=== PATIENT | male | born 1970 | race Caucasian/White ===

== ENCOUNTER 2020-09-12 10:18 | Observation (INO) | payer OTHER, BC, SELFPAY ==
[2020-09-12] VITALS (16 sets, daily range): BP systolic 107–142; BP diastolic 61–96; PULSE 59–117; RESP 12–24; TEMP 36.3–37.1; O2SAT 95–100; BMI 29.2
--- NOTE | ~2020-09-12 | XR_ITS ---
EXAMINATION: XR surgery orthopedic DATE: 09/12/2020 15:56 INDICATION: ORIF left tibia/fibula fractures. TECHNIQUE: 3 fluoroscopic spot images of the left ankle were obtained during procedure performed by Michaelle Hartley. Radiologist was not present for the imaging or procedure. The amount of fluoroscopy time used during this procedure was 0.1 minutes. COMPARISON: None. FINDINGS: Interval reduction and internal fixation with interfragmentary screw and lateral plate and screw fixa tion of the oblique distal left fibular fracture. There is a subtle double density sign corresponding to the small likely minimally displaced posterior malleolar fracture which remains unfixed. There fe w millimeter of residual distraction of a tiny fracture fragment arising from the tip of the medial m alleolus. The prior widening of the medial clear space is been reduced with a now congruent ankle mor tise. IMPRESSION: 1. Trimalleolar fracture with anatomic alignment of the internal fixation of the distal left fibular fracture. 2. Mild residual displacement of a small posterior malleolar fracture fragment and of a tiny avulsion fracture fragment arising from the tip of the medial malleus both of which remain unfixed. Reviewed, dictated and finalized at location A. [facility] PSYCHIATRIC AIDE IMPRESSION: 1. Trimalleolar fracture with anatomic alignment of the internal fixation of th e distal left fibular fracture. 2. Mild residual displacement of a small posterior malleolar fracture fragment and of a tiny avulsion fracture fragment arising from the tip of the medial mal leus both of which remain unfixed.
--- NOTE | ~2020-09-12 | XR_ITS ---
EXAMINATION: XR ankle LT min 3V EXAM DATE: 09/12/2020 12:03 INDICATION: Splinted. Jumped off truck. Fracture. TECHNIQUE: Left ankle frontal, lateral and oblique projections obtained and reviewed. Comparison is m yenny to prior examination from earlier same date. FINDINGS: There is been some reduction in the posterolateral displacement of the left fibular obliqu e distal metaphyseal fracture extending into the mortise. There is still significant posterior latera l displacement. The mortise relationship does appear to have been reduced, but based on the prior josh dy clearly mortise medial ligaments have also been disrupted with medial malleolar avulsion fracture identified. A cast/splint has been applied. Calcaneal spurs. Recommend orthopedic consult. IMPRESSION: Casted left fibular metaphyseal fracture. Ligamentous mortise disruption. Reviewed, dictated and finalized at location B. GROUND CARETAKER IMPRESSION: Casted left fibular metaphyseal fracture. Ligamentous mortise disr uption.
--- NOTE | ~2020-09-12 | XR_ITS ---
EXAMINATION: XR ankle LT min 3V DATE: 09/12/2020 10:41 INDICATION: Left ankle pain, initial encounter TECHNIQUE: Anteroposterior, lateral, mortise, and additional oblique view of the ankle were obtained. COMPARISON: None. FINDINGS: There is an acute, traumatic, closed, oblique fracture of the distal fibula which extends t o the level of the tibial plafond. There is posterior subluxation at the tibiotalar joint with the di stal fibular fracture fragment approximately 1.2 cm posterior to the fibular shaft. There is also joo roximately 6 mm of lateral subluxation at the tibiotalar joint. A tiny heterotopic ossification is se en projecting medial to the talus. Ankle soft tissue swelling is present. Dorsal and plantar calcanea l enthesophytes are noted. IMPRESSION: 1. Oblique fracture of the distal fibula with lateral and posterior subluxation at the tibiotalar darron nt. 2. Findings consistent with avulsion injury of the medial malleolus. Reviewed, dictated and finalized at location A. CE INVESTIGATOR IMPRESSION: 1. Oblique fracture of the distal fibula with lateral and posterior subluxation at the tibiotalar joint. 2. Findings consistent with avulsion injury of the medial malleolus.
[2020-09-12] MEDS: LORazepam INJ (*CRX) 2 MG/ML VIAL 1 MG IV PUSH (10:45)
[2020-09-12] MEDS: SODIUM CHLORIDE 0.9% IV 1,000 ML 999 ML IV CONT (10:46)
[2020-09-12] MEDS: MORPHINE SULFATE (*CRX) 4 MG/ML INJ IV PUSH ×2 (11:26→11:57)
--- NOTE | 2020-09-12 12:33 | ED.GENADULT ---
HPI - General Adult General Chief complaint: Extremity Injury, Lower Stated complaint: ankle injury Time Seen by Provider: 09/12/20 10:21 Source: patient Mode of arrival: EMS Limitations: no limitations History of Present Illness HPI narrative: Patient is a 49-year-old male who presents to emergency department for evaluation of ankle injury that occurred just prior to arrival patient jumped off the back of a truck injuring the left ankle patient notes aching pain and inability to bear weight patient was given medications in route with some improvement patient denies other injuries or complaints Related Data Allergies Allergy/AdvReac Type Severity Reaction Status Date / Time No Known Allergies Allergy Verified 04/03/20 13:14 Review of Systems Review of Systems: All systems reviewed & are unremarkable except as noted in HPI and below PMFSH Past Medical History Medical History (Updated 09/12/20 @ 12:37 by Carlos Alberto Larsen PA-C) Dyslipidemia Environmental allergies Vertigo 08/2018 Surgical History Surgical History Hx of lumbosacral spine surgery 1997 Family History Family History Father Cerebrovascular accident Other Family history of coronary artery disease Social History Social History Smoking status: Never smoker Tobacco type: cigarettes Second hand tobacco smoke exposure: Yes Smoking end date: 11/07/19 Additional smoking assessment comments: step-father smokes around him Alcohol intake: never Substance use: never Substance use type: marijuana Gender identity (if verbalized by the patient): Male Exam Narrative: Exam Narrative: GENERAL: Well-appearing, well-nourished, and in no acute distress. HEAD: Normocephalic, atraumatic. EYES: PERRLA and EOMI. ENT: Nares clear, no rhinorrhea or epistaxis. Mucous membranes moist. CHEST: Clear to auscultation. No respiratory distress. No wheezes rales or rhonchi HEART: Regular rate and rhythm. No murmur heard. Normal peripheral pulses. EXTREMITIES: Swelling and tenderness of the left ankle joint no tenderness of the remainder of the left lower extremity SKIN: Warm, dry, no rash. NEURO: No focal deficits. Alert and oriented x3. Neurovascularly intact. Capillary refill less than 2 seconds PSYCH: Normal mood and affect. Course Course Emergency Course: Patient will go to operative suite had splinting and reduction done in the emergency department will go to surgery today Consultations Consultation #1: Discussed case with front office specialist who will manage the patient patient will have surgery today Date: 09/12/20 Time: 12:34 Vital Signs Vital signs: Vital Signs Temperature 97.6 F 09/12/20 10:17 Pulse Rate 76 09/12/20 10:17 Respiratory Rate 13 09/12/20 10:17 Blood Pressure 127/86 09/12/20 10:17 Pulse Oximetry 97 09/12/20 10:17 Temperature 97.6 F 09/12/20 10:17 Pulse Rate 76 09/12/20 12:08 Respiratory Rate 16 09/12/20 12:08 Blood Pressure 112/61 09/12/20 12:08 Pulse Oximetry 100 09/12/20 12:08 Procedures Orthopedic Fracture Reduction Fracture #1: Fracture Reduction date: 09/12/20 Fracture Reduction time: 12:35 Time Out Performed: No Side: left Analgesia: none Pre-Procedure Neuro Vascular Exam: normal Technique: direct manipulation Post Reduction X-rays Demonstrate: anatomical reduction Post-reduction neuro exam: intact Post-reduction vascular exam: intact Splint Applied: Yes Patient Tolerated Procedure: well Orthopedic Splinting/Casting Injury #1: Splinting/Casting Date: 09/12/20 Splinting/Casting Time: 12:36 Side: left Lower Extremity Injury Location: lower leg Lower Extremity Immobilizer: posterior splint and stirrup spli
--- NOTE | 2020-09-12 13:13 | PC.NURSE ---
PT REPORT GIVEN TO RN APRIL, PT CLEARED TO GO TO PRE-OP ROOM 11.
--- NOTE | 2020-09-12 13:19 | PM.IMHP ---
H&P: HPI History of Present Illness Date/Time: 09/12/20 13:19 49-year-old gentleman jumped off the back of his truck earlier this morning with a twisting injury to the left ankle. Patient felt displacement of the ankle as well as sharp pain laterally. Unable to bear weight. Was brought directly to the emergency room here at [facility]. Denies any prior problems with the ankle. Complains of sharp pain diffusely at the ankle. Denies neck or back injury or pain. Denies hip or knee pain. Denies numbness or tingling. Chief complaint: ankle injury Narrative: Eric Delaney is a 49 year old male Review of Systems Constitutional: Constitutional: Denies fever(s) Eyes: Eyes: Denies blurry vision ENT: Reports Normal hearing present Cardiovascular: Cardiovascular: Denies chest pain and Denies dyspnea Respiratory: Respiratory: Denies dyspnea and Denies wheezing Gastrointestinal: Gastrointestinal: Denies abdominal pain Genitourinary: Genitourinary: Denies urinary urgency Musculoskeletal: Musculoskeletal: Reports as per HPI and Denies numbness Integumentary/Breasts: Skin/Breast: Denies changing lesions and Denies sores Neurologic: Reports Normal hearing present, Denies behavioral changes, Denies confusion, Denies numbness and Denies convulsions Psychiatric: Psychiatric: Denies behavioral changes, Denies confusion and Denies hallucinations Endocrine: Endocrine: Denies heat intolerance and Reports other ( Increased lipids) Hematologic/Lymphatic: Hematologic/Lymphatic: Denies easy bleeding Allergic/Immunologic: Allergic/Immunologic: Denies wheezing PMFSH Past Medical History Medical History (Updated 09/12/20 @ 13:23 by Art Hartley MD) Dyslipidemia Environmental allergies Fracture of ankle, bimalleolar, left, closed Vertigo 08/2018 Work related injury Surgical History Surgical History Hx of lumbosacral spine surgery 1997 Family History Family History Father Cerebrovascular accident Other Family history of coronary artery disease Social History Social History Smoking status: Never smoker Tobacco type: cigarettes Second hand tobacco smoke exposure: Yes Smoking end date: 11/07/19 Additional smoking assessment comments: step-father smokes around him Alcohol intake: never Substance use: never Substance use type: marijuana Gender identity (if verbalized by the patient): Male Meds Home Medications and Allergies Home Medications Medication Instructions Recorded Confirmed Type simvastatin 40 mg tablet 40 mg PO .QHS #90 tablet 04/04/20 Rx hydrocodone-acetaminophen 1 tablet PO Q6H PRN #20 tablet 09/12/20 Rx Allergies Allergy/AdvReac Type Severity Reaction Status Date / Time No Known Allergies Allergy Verified 04/03/20 13:14 Vital Signs Vital Signs - 24 hr 09/12/20 10:17 09/12/20 10:47 09/12/20 11:36 Temperature 97.6 F Pulse Rate 76 59 L 63 Respiratory Rate 13 12 22 H Blood Pressure 127/86 109/72 112/61 Pulse Oximetry 97 98 99 09/12/20 12:08 Temperature Pulse Rate 76 Respiratory Rate 16 Blood Pressure 112/61 Pulse Oximetry 100 Exam Const: General: No confusion Orientation/consciousness: No confusion HENMT: Head: normal to inspection, normocephalic and atraumatic Eyes: Conjunctivae: conjunctivae normal Sclera: sclerae normal Neck: Neck: supple and nontender Chest: Chest palpation & inspection: normal inspection of the chest Resp: Effort & Inspection: normal respiratory effort and no audible wheezes Cardio: Rate: regular rate Rhythm: regular rhythm : General: Yes deferred Skin: General skin exam: no rashes or lesions noted Neuro: General: No confusion Extrem: General: capillary refill normal Right upper extremity: normal to inspection Left upper e
--- NOTE | 2020-09-12 13:44 | WPDANESEPPF ---
Anes - Initial Pre Proc Eval Procedure: Operation Date: 09/12/20 14:30 Proposed Procedures p Open Reduction Internal Fixation Left Fibula - Art Hartley MD Date/Time: 09/12/20 13:44 Pre Op Diagnosis: ankle injury Patient Data Age: 49 Gender: M Height: 1.68 m Weight: 82.3 kg Last Vital Signs Temp 36.4 C 09/12/20 10:17 Pulse 81 09/12/20 13:20 Resp 18 09/12/20 13:20 BP 112/61 09/12/20 13:20 Pulse Ox 99 09/12/20 13:20 Allergies Allergy/AdvReac Type Severity Reaction Status Date / Time No Known Allergies Allergy Verified 09/12/20 13:58 Home Medications Medication Instructions Recorded Confirmed Type hydrocodone-acetaminophen 1 tablet PO Q6H PRN #20 tablet 09/12/20 Rx simvastatin 40 mg PO HS 09/12/20 09/12/20 History Patient hx anesthesia problems: none Family hx anesthesia problems: none PMFSH Past Medical History Medical History (Updated 09/12/20 @ 13:23 by Art Hartley MD) Dyslipidemia Environmental allergies Fracture of ankle, bimalleolar, left, closed Vertigo 08/2018 Work related injury Surgical History Surgical History Hx of lumbosacral spine surgery 1997 Family History Family History Father Cerebrovascular accident Other Family history of coronary artery disease Social History Social History Smoking status: Never smoker Tobacco type: cigarettes Second hand tobacco smoke exposure: Yes Smoking end date: 11/07/19 Additional smoking assessment comments: step-father smokes around him Alcohol intake: never Substance use: never Substance use type: marijuana Gender identity (if verbalized by the patient): Male Anes - Eval Final PreProcedure Day of Procedure 09/12/20 13:44 Patient weight: overweight Heart: regular rate and rhythm Lungs: clear to auscultation and normal air movement Airway: Mallampati scale class II Neurological: alert and oriented Last oral intake: >/= 8 hours ASA classification: II Emergent: no Anesthetic plan: proceed Anesthesia type and monitoring: general LMA Informed Consent: The patient's anesthetic plan and its attendant risks and benefits were discussed with the patient/family/POA. Questions were solicited and answers provided to the satisfaction of the patient/family/POA.
[2020-09-12] MEDS: LACTATED RINGERS 1,000 ML 30 ML IV CONT (13:49)
[2020-09-12] MEDS: fentaNYL CITRATE INJ (*CRX) 100 MCG/2 ML VIAL 50 MCG IV PUSH ×2 (13:50→14:05)
--- NOTE | 2020-09-12 14:45 | WPDHPUPDATE1 ---
History and Physical Update Update Date/Time: 09/12/20 14:45 History and Physical has been reviewed, including an updated exam of the patient. There are NO changes in the patient's condition. Risks, benefits, and alternatives have been discussed and questions answered. Patient agrees to proceed with procedure.
[2020-09-12] MEDS: ceFAZolin 2 GM/D5W 50 ML 2 GM/50 ML BAG IVPB (14:53)
[2020-09-12] MEDS: BUPIVACAINE HCL 0.5% PF 30 ML VIAL INFILTRATE (15:19)
--- NOTE | 2020-09-12 16:01 | SUR.OPER ---
X2 superficial scratches noted to anterior portion of leg superior to operative site (mid [place]arth[place]) at the end of the case
[2020-09-12] MEDS: fentaNYL CITRATE INJ (*CRX) 100 MCG/2 ML VIAL 25 MCG IV PUSH ×5 (16:25→16:56)
--- NOTE | 2020-09-12 16:38 | PM.PROC ---
Procedure Note - Detailed Date of procedure: 09/12/20 Pre-op diagnosis: Closed left ankle fracture Post-op diagnosis: same Procedure performed: ORIF LT ankle Description of procedure: Operative indications: Patient is a 49 year-old man who sustained an injury to the ankle. Radiographs show distal fibular fracture with displacement. Widening of the ankle mortise noted. Patient presents for operative treatment. Full discussion of the risks, benefits and alternatives of surgery was had with the patient. Questions answered. Patient verbalizes understanding and wishes to proceed. What was done: After informed consent, the operative extremity was marked in the preoperative holding area. Patient received intravenous antibiotics. Patient was then taken to the operating room and underwent general anesthesia by the anesthesia team. They were positioned supine on the operating room table. A time-out was performed confirming the patient, site of the surgery, operative plan. Lower extremity then prepped and draped in the usual sterile surgical fashion using ChloraPrep skin solution. Foot and ankle exsanguinated and a thigh tourniquet inflated to 250 mmHg. Longitudinal incision made over the lateral ankle distal fibula with a 15 blade knife. Hemostasis controlled with electrocautery. Full-thickness soft tissue flaps developed and the fascia was incised in line with the skin incision. Fracture identified and cleared with a dental pick, irrigation and rongeur. Fracture reduced and held with bone-holding clamp. Image intensification confirmed reduction of the fracture and the ankle mortise. Fixation achieved with a 3.5 millimeter fully-threaded cortical screw placed in lag technique across the fracture. Neutralization with a 7 hole lateral plate with unicortical screws distal to fracture and bicortical screws proximal to the fracture. Good alignment and stability of the fracture noted. Image intensification used to confirm reduction of the fracture and placement of the hardware. Stress of the ankle performed with good stability of the ankle mortise in all directions. Wound thoroughly irrigated with antibiotic solution. Fascia repaired with 00 Vicryl interrupted suture. Subcutaneous tissue repaired with 000 Monocryl interrupted suture and 000 Monocryl running suture. Sterile dressings applied. Patient awoken from anesthesia, extubated and taken to the recovery room in stable condition. All sponge, needle and instrument counts correct at the end of the case. Palpable dorsalis pedis pulse noted prior to dressing. Implants: Biomet 1/3 tubular plate 7hole with 7 screws, 3.5mm screw x 1 Anesthesia: GLMA Surgeon: Art Hartley MD Estimated blood loss (mL): 5 Tourniquet time (min): 50 Drains: No Packing: No Pathology: none sent Complications: None Condition: stable Disposition: PACU
--- NOTE | 2020-09-12 17:20 | PC.NURSE ---
This patient, Eric Delaney, was admitted to Medical Room 253-01. Patient/family oriented to hospital policies and general routines including ID bracelet, bed and alarms, visiting hours, pain management, procedures, bathroom and other care routines, personal items, smoking policy, room service/diet, and visiting hours. Information on how to activate the Rapid Response Team has been discussed. Patient/Family are encouraged to report perceived risks to care and to ask questions if they do not understand what they are told or what they should do.
[2020-09-12] MEDS: HYDROcodone/acetaminophen (*CRX) 7.5-325 MG TABLET 1 TAB PO ×2 (18:21→23:35)
[2020-09-12] MEDS: DOCUSATE SODIUM 100 MG CAPSULE PO (18:22)
[2020-09-12] MEDS: FAMOTIDINE 20 MG/2 ML VIAL IV PUSH (20:20)
[2020-09-12] MEDS: SIMVASTATIN 20 MG TABLET 40 MG PO (20:20)
[2020-09-13 02:43] VITALS: BP 117/77; PULSE 76; RESP 16; TEMP 36.3; O2SAT 98
[2020-09-13] MEDS: HYDROcodone/acetaminophen (*CRX) 7.5-325 MG TABLET 1 TAB PO ×2 (05:41→09:00)
[2020-09-13 06:00] VITALS: BP 119/64; PULSE 81; RESP 16; TEMP 36.6; O2SAT 100
[2020-09-13] MEDS: DOCUSATE SODIUM 100 MG CAPSULE PO (08:51)
[2020-09-13] MEDS: ASPIRIN 325 MG ENTERIC TABLET 650 MG PO (08:51)
[2020-09-13] MEDS: FAMOTIDINE 20 MG/2 ML VIAL IV PUSH (08:51)
--- NOTE | 2020-09-13 09:35 | PM.PNORT ---
Progress Note: A&P Assessment and Plan (1) Fracture of ankle, bimalleolar, left, closed: Qualifiers: Encounter type: subsequent encounter Fracture healing: with routine healing Qualified Code(s): S82.842D - Displaced bimalleolar fracture of left lower leg, subsequent encounter for closed fracture with routine healing Code(s): S82.842A - Displaced bimalleolar fracture of left lower leg, initial encounter for closed fracture Status: Acute Assessment and Plan: Postoperative day 1. Open reduction internal fixation left ankle fracture. Pain well controlled wound patient rest. Some pain and swelling when foot dependent. Seen by physical therapy this morning. Tolerating regular diet. Discharged home when cleared by therapy. Subjective Subjective Date/Time Seen: 09/13/20 09:35 Patient awake and alert. Pain when foot is dependent otherwise well controlled. Denies numbness or tingling. Exam Const: General: No confusion Orientation/consciousness: No confusion HENMT: Head: normal to inspection, normocephalic and atraumatic Eyes: Conjunctivae: conjunctivae normal Sclera: sclerae normal Neck: Neck: supple and nontender Chest: Chest palpation & inspection: normal inspection of the chest Resp: Effort & Inspection: normal respiratory effort and no audible wheezes Cardio: Rate: regular rate Rhythm: regular rhythm : General: Yes deferred Skin: General skin exam: no rashes or lesions noted Neuro: General: No confusion Extrem: General: capillary refill normal Right upper extremity: normal to inspection Left upper extremity: normal to inspection Right lower extremity: normal to inspection and hip/thigh Details: normal to inspection Left lower extremity: hip/thigh Details: normal to inspection, knee Details: abnormal ROM ( range of motion deferred secondary to fracture) and ankle (no calf tenderness) Details: tenderness ( lateral malleolus), swelling ( moderate anterior ankle, moderate lateral ankle) and other ( good capillary refill in toes, 2+ DP pulse, light touch sensation intact. Splint intact. Able to move toes.) Psych: Affect: normal affect Objective Data Vital Signs Vital Signs: Vital Signs - 24 hr 09/12/20 10:17 09/12/20 10:47 09/12/20 11:36 Temperature 97.6 F Pulse Rate 76 59 L 63 Respiratory Rate 13 12 22 H Blood Pressure 127/86 109/72 112/61 Pulse Oximetry 97 98 99 09/12/20 12:08 09/12/20 13:20 09/12/20 13:54 Temperature 98.7 F Pulse Rate 76 81 88 Respiratory Rate 16 18 18 Blood Pressure 112/61 112/61 124/72 Pulse Oximetry 100 99 100 09/12/20 16:15 09/12/20 16:30 09/12/20 16:47 Temperature 97.4 F L Pulse Rate 117 H 93 96 Respiratory Rate 20 16 24 H Blood Pressure 142/96 H 128/92 H 107/70 Pulse Oximetry 96 98 96 09/12/20 17:00 09/12/20 17:20 09/12/20 17:35 Temperature 98.4 F 98.2 F Pulse Rate 86 82 89 Respiratory Rate 16 16 16 Blood Pressure 128/96 H 131/78 130/80 Pulse Oximetry 97 100 98 09/12/20 18:05 09/12/20 18:27 09/12/20 19:05 Temperature 98.0 F 98.2 F Pulse Rate 87 87 90 Respiratory Rate 18 16 16 Blood Pressure 135/85 132/81 Pulse Oximetry 96 97 95 09/12/20 22:16 09/13/20 02:43 09/13/20 06:00 Temperature 98.3 F 97.4 F L 97.8 F Pulse Rate 73 76 81 Respiratory Rate 16 16 16 Blood Pressure 114/77 117/77 119/64 Pulse Oximetry 98 98 100 Intake/Output Intake/Output: Intake & Output 09/10/20 09/11/20 09/12/20 09/13/20 23:59 23:59 23:59 23:59 Intake Total 1050 550 Output Total 400 2850 Balance 650 -2300 Meds/Results Medications: Active Medications Generic Name Dose Route Start Last Admin Trade Name Freq PRN Reason Stop Dose Admin Acetaminophen 650 mg 09/12/20 17:13 Acetaminophen 325 Mg Tablet PO Q6H PRN Fever Hydrocodone Bitart/Acetaminophen 1 tab 09/12/20 17:13 09/13/20 09:00 Hydrocodone/Acetaminophen (*Crx) 7.5-325 Mg Tablet PO 1 tab Q3H PRN Administration Pain R
--- NOTE | 2020-09-13 09:47 | PM.DS ---
DS: Admitting Diagnosis Admitting Diagnosis Admitting Diagnosis: Closed left ankle fracture DS: Discharge Diagnosis Discharge Diagnosis (1) Fracture of ankle, bimalleolar, left, closed: Onset Date: 09/12/20 Qualifiers: Encounter type: subsequent encounter Fracture healing: with routine healing Qualified Code(s): S82.842D - Displaced bimalleolar fracture of left lower leg, subsequent encounter for closed fracture with routine healing Code(s): S82.842A - Displaced bimalleolar fracture of left lower leg, initial encounter for closed fracture Status: Acute Assessment and Plan: Status post operative repair. Splint in place. Stable. Follow up in orthopedic office in 1 week. DS: Summary Hospital Course Reason for hospitalization: Left ankle fracture Hospital Course: patient taken from the emergency room urgently to the operating room for open reduction internal fixation left ankle fracture. Admitted postoperatively for pain control and observation. Patient is stable overnight. Postoperative day 1. Consult with Physical therapy. Pain controlled and tolerating diet. Cleared for discharge to home. Status at Discharge Functional status at discharge: uses cane/walker Overall status at discharge: patient is not back to baseline Time Spent with Patient Time attestation: Total time spent providing and/or coordinating discharge services: Exam Const: General: No confusion Orientation/consciousness: No confusion HENMT: Head: normal to inspection, normocephalic and atraumatic Eyes: Conjunctivae: conjunctivae normal Sclera: sclerae normal Neck: Neck: supple and nontender Chest: Chest palpation & inspection: normal inspection of the chest Resp: Effort & Inspection: normal respiratory effort and no audible wheezes Cardio: Rate: regular rate Rhythm: regular rhythm : General: Yes deferred Skin: General skin exam: no rashes or lesions noted Neuro: General: No confusion Extrem: General: capillary refill normal Right upper extremity: normal to inspection Left upper extremity: normal to inspection Right lower extremity: normal to inspection and hip/thigh Details: normal to inspection Left lower extremity: hip/thigh Details: normal to inspection, knee Details: abnormal ROM ( range of motion deferred secondary to fracture) and ankle (no calf tenderness) Details: tenderness ( lateral malleolus), swelling ( moderate anterior ankle, moderate lateral ankle) and other ( good capillary refill in toes, 2+ DP pulse, light touch sensation intact. Splint intact. Able to move toes.) Psych: Affect: normal affect Discharge Plan Discharge Attending physician on discharge: Rochelle Francois Discharging Clinician: Rochelle Francosi Anticipated Discharge Date/Time: 09/13/20 13:00 Patient Disposition: Home, Self-Care Activity: follow weight bearing status Diet: as tolerated Wound Care Instructions: keep dressing dry Discharge Instructions: ROCHELLE FRANCOIS M.D. [facility] [address] [place] [address] POST OPERATIVE DISCHARGE INSTRUCTIONS FOOT/ANKLE SURGERY Elevate the involved extremity on pillows. For the first 48 hours, make sure that the foot is above the level of your heart. Carefully observe the exposed toes for evidence of swelling or discoloration. If the dressing is uncomfortable or tight, call the Dr?s office. Keep the dressing clean and dry. Remove dressing only as directed by doctor. If the pain medication does not provide adequate relief, please call Dr?s office. Take other medication as prescribed. Please call Dr?s office to confirm follow-up appointment for 1 week. If you have any questions, please call the Dr?s office. Diet as tolerated. Activ
[2020-09-13 09:55] VITALS: BP 118/58; PULSE 82; RESP 16; TEMP 36.4; O2SAT 98
--- NOTE | 2020-09-13 13:54 | WPDANESPN ---
Anes - Prog Note Post-Op Date/Time: 09/13/20 13:54 Cardiovascular status: normal Respiratory status: normal Airway patency: baseline Mental status: baseline Post-Op hydration status: normal Vital Signs: Last Vital Signs Temp 36.4 C 09/13/20 09:55 Pulse 82 09/13/20 09:55 Resp 16 09/13/20 09:55 BP 118/58 L 09/13/20 09:55 Pulse Ox 98 09/13/20 09:55 Pain Score (VAS): 11/16 I/O: Intake & Output 09/12/20 09/13/20 09/13/20 23:59 07:59 15:59 Intake Total 1050 550 480 Output Total 400 2850 Balance 650 -2300 480 Post-procedural complaints: none Patient Feedback: Patient satisfied with anesthetic care.
== END 2020-09-13 13:30 | disposition home or self-care (01) ==
LOC: ANHED 13:09 → ANH2MED 14:30
PROVIDERS: Admitting Provider Orthopaedic Surgery; Emergency Provider Emergency Medicine; PCP Family Medicine; Visit Provider Orthopaedic Surgery
PROC: (CPT 27792; principal; 2020-09-12 14:30)
DX: S82.842A Displaced bimalleolar fracture of left lower leg, initial encounter for closed fracture (principal); W17.89XA Other fall from one level to another, initial encounter; Y99.0 Civilian activity done for income or pay; E78.5 Hyperlipidemia, unspecified; Z79.899 Other long term (current) drug therapy
CPT/HCPCS: 27792; 27752; 73610; 96361; 96374; 96375; 96376; 97110; 97116; 97161; 99285; A9270; C1713; G0378; J0690; J1100; J2060; J2250; J2270; J2405; J2704; J3010; J7030; J7120

== ENCOUNTER 2023-09-23 07:47 | Outpatient (CLI) | payer BC, SELFPAY | END 2023-09-23 07:48 | disposition home or self-care (01) | LOC: ANHAUDASC 07:48 | PROVIDERS: PCP Family Medicine; Visit Provider Otolaryngology | DX: H72.10 Attic perforation of tympanic membrane, unspecified ear (principal); H73.891 Other specified disorders of tympanic membrane, right ear | CPT/HCPCS: 99199 ==

== ENCOUNTER 2023-10-26 07:56 | Outpatient (CLI) | payer BC, SELFPAY | END 2023-10-26 07:57 | disposition home or self-care (01) | LOC: ANHAUDASC 07:57 | PROVIDERS: PCP Family Medicine; Visit Provider Otolaryngology | DX: H73.891 Other specified disorders of tympanic membrane, right ear (principal); H90.6 Mixed conductive and sensorineural hearing loss, bilateral | CPT/HCPCS: 92557; 92567 ==

== ENCOUNTER 2023-11-14 08:15 | Outpatient (CLI) | payer BC, SELFPAY ==
--- NOTE | ~2023-11-14 | MR_ITS ---
EXAMINATION: MR IAC wo/w con DATE: 11/14/2023 09:34 INDICATION: Unspecified hearing loss, right ear. TECHNIQUE: Magnetic resonance imaging (MRI) of the brain, brainstem, and internal auditory canals was performed without and with 15 mL MultiHance intravenous contrast. COMPARISON: Head CT 01/12/2019 FINDINGS: There is no intracranial hemorrhage, acute infarction, or abnormal intracranial mass lesion . The ventricles are normal in size. There is mucosal thickening in the paranasal sinuses. The orbits are normal. The internal auditory canals and inner ears are normal. There are bilateral otomastoid e ffusions. IMPRESSION: 1. Normal brain. 2. Bilateral otomastoid effusions. Reviewed, dictated and finalized at location A. ENRICHMENT DIRECTOR
== END 2023-11-14 08:16 | disposition home or self-care (01) ==
PROVIDERS: PCP Family Medicine; Visit Provider Otolaryngology
DX: H91.91 Unspecified hearing loss, right ear (principal); R94.02 Abnormal brain scan
CPT/HCPCS: 70553; A9577

== ENCOUNTER 2024-12-24 15:31 | Outpatient (CLI) | payer BC, SELFPAY ==
--- OUTSIDE RECORDS SUMMARY | 2024-12-24 18:06 | XMS_ITS | Patient Health Summary ---
Author Organization [facility] Address [address] [place] [address] Care Team Providers Care Cake Stripper Name Role Phone Ursual Reyes Primary Care Provider Note from [facility],non-owned Affiliates and Associated Physician Practices is amultiple site organization consisting of ambulatory clinics and hospital sitesin [place], [place], [place] and [place]. This disclosure is being madepursuant to the Care Everywhere program and may not contain all information available regarding this patient. Last updated 18.[facility] Allergies No known active allergies Medications * Be aware that medications may not be up to date on this document. Alwaysverify current medications with the patient. * atorvastatin (Lipitor) 40 MG tablet(Started 11/07/2019) Take 1 (one) tablet by mouth as directed * fluticasone propionate (Flonase) 50 MCG/ACT nasal spray(Started 02/07/2024) [place] 1 (one) spray into each nostril as directed * SUMAtriptan (Imitrex) 25 MG tablet(Started 04/27/2024) Take 1 tab by mouth once at first sign of migraine. May repeat one time after 2 hours if needed. Active Problems No known active problems Immunizations * INFLUENZA VACCINE, CELL CULTURE, QUADR. (FLUCELVAX QUADRIVALENT; 6MO+), 0.5 ML (CCIIV4)(Given 08/28/2018) * TDAP, HISTORIC VACCINE(Given 12/23/2014) Social History Tobacco Use Types Packs/Day Years Used Date Smoking Tobacco: Some Days Cigarettes Smokeless Tobacco: Never Tobacco Cessation:Ready to Q uit: Not Asked; Counseling Given: Not Answered Comments:2 cigs a day Alcohol Use Standard Drinks/Week Comments Not Currently 0 (1 standard drink = 0.6 oz pur e alcohol) Sex and Gender Information Value Date Recorded Sex Assigned at Not on file Gender Identity Not on file Sexual Orientation Not on file Last Filed Vital Signs Vital Sign Reading Time Taken Comments Blood Pressure 151/97 09/10/2024 9:25 AM PREPRESS TECHNICIAN Pulse 87 09/10/2024 9:25 AM PREPRESS TECHNICIAN Temperature - - Respiratory Rate - - Oxygen Saturation 100% 01/23/2024 8:38 AM CDT Inhaled Oxygen Concentration - - Weight 77.7 kg (171 lb 3.2 oz) 09/10/2024 9:25 A M PREPRESS TECHNICIAN Height 165.1 cm (5' 5 ) 09/10/2024 9:25 AM PREPRESS TECHNICIAN Body Mass Index 28.49 09/10/2024 9:25 AM PREPRESS TECHNICIAN Procedures * AUDIOLOGY/TYMPANOMETRY ORDER(Performed 01/23/2024) Results * AUDIOLOGY/TYMPANOMETRY ORDER (01/23/2024 10:37 AM CDT) Addenda Addendum by Sarath Car, PhD on 01/23/2024 10:38 AM CDT Narrative Sarath Car, PhD - 01/23/2024 10:37 AM CDT HISTORY: Eric Delaney is a 53 year old male was seen for an assessment of their hearing. Patient indicated that a video firer glost kiln is not necessary for this appointment. The patient reports difficulty hearing. There is a report of dizziness. There is a report of tinnitus. There is a report of otalgia. Onset- 5 years ago. There is a report of noise exposure. There is not a history of hearing loss in the family. There is not a history of previous ear surgery. 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 Speech Spinning Bath Patroller Thresholds is in good agreement with pure tone average(see speech audiometry for details). Speech understanding was poor in the right ear and excellent in the left ear. Immittance measures revealed a Type C tympanogram in the right ear, indicating abnormal middle ear function. Results for the left ear revealed a Type A tympanogram, indicating normal middle ear function in that ear. Findings were reviewed and discussed with Eric Delaney following the hearing evaluation. All questions were answered. PLAN: 1. The risks and benefits of my recommendations, as well as other treatment options were discussed today. 2. I recommend that the patient follow up with their facility, an ENT or PCP PRN. Sarath Car, Ph.D., [facility]., [facility] Collection Supervisor Director, Division of Audiology Department of Otolaryngology- Head & Neck Surgery [facility] Sarath Car PhD [facility]UD[facility]OLOGY SERVICES [facility] Care Teams Cake Stripper Relationship Specialty Start Date End Date Ursula Reyes [address] [place] [address] PCP - General 01/23/24
--- OUTSIDE RECORDS SUMMARY | 2024-12-24 18:06 | XMS_ITS | Clinical Summary ---
Author Organization [email or web address] Address [address] [place] [address] Care Team Providers Care Bend Sorter Name Role Phone Amy Ursula Thomas Primary Care Provider [phone] Source Comments [facility] [email or web address] [facility],non-owned Affiliates and Associated Physician Practices is amultiple site organization consisting of ambulatory clinics and hospital sitesin [place], [place], [place] and [place]. This disclosure is being madepursuant to the Care Everywhere program and may not contain all information available regarding this patient. Last updated 18.[facility] [email or web address] [facility] Allergies No known active allergies Medications * Be aware that medications may not be up to date on this document. Alwaysverify current medications with the patient. Medication Sig Dispensed Refills Start Date End Date Status atorvastatin (Lipitor) 40 MG tablet Take 1 (one) tablet by mouth as directed 11/07/2019 Active fluticasone propionate (Flonase) 50 MCG/ACT nasal spray [place] 1 (one) spray into each nostril as directed 02/07/2024 Active SUMAtriptan (Imitrex) 25 MG tablet Take 1 tab by mouth once at first sign of migraine. May repeat one time after 2 hours if needed. 9 tablet 04/27/2024 Active Additional Information Patient taking differently: 25 mg Oral ONCE, Take 1 tab by mouth once at first sign of migraine. May repeat one time after 2 hours if needed., Reported on 08/09/2024 Active Problems No known active problems Immunizations Name Administration Dates Next Due INFLUENZA VACCINE, CELL CULT URE, QUADR. (FLUCELVAX QUADRIVALENT; 6MO+), 0.5 ML (CCIIV4) 08/28/2018 TDAP, HISTORIC VACCINE 12/23/2014 Social History Tobacco Use Types Packs/Day Years [...] Comments Blood Pressure 151/97 09/10/2024 9:25 AM HIGH RIGGER Pulse 87 09/10/2024 9:25 AM HIGH RIGGER Temperature - - Respiratory Rate - - Oxygen Saturation 100% 01/23/2024 8:38 AM CDT Inhaled Oxygen Concentration - - Weight 77.7 kg (171 lb 3.2 oz) 09/10/2024 9:25 A M HIGH RIGGER Height 165.1 cm (5' 5 ) 09/10/2024 9:25 AM HIGH RIGGER Body Mass Index 28.49 09/10/2024 9:25 AM HIGH RIGGER Plan of Treatment Upcoming Encounters Date Type Department Care Team (Late st Contact Info) Description 01/09/2025 3:30 PM HIGH RIGGER Office Visit [facility] - ENT [address] , [address] [address] Nely Mendoza, GLASS CUTTER-AUTOMATION TECH [address] [address] 02/07/2025 9:30 AM CDT Office Visit [facility] - ENT [address] , [address] [address] Nely Mendoza, GLASS CUTTER-AUTOMATION TECH [address] [address] 03/27/2025 3:00 PM CDT Testing [facility] [address] [place] [address] Lilliam Arana, Gregory [address] [facility] [address] [place] [address] 03/27/2025 3:30 PM CDT Office Visit [facility] - [facility]NT [facility] [facility] [facility], [place] [id number] Mati Sanchez MD [address] DEPT [place] [address] Health Maintenance Due Date Last Done Comments COLOGUARD (AGES 45-75) - COL ON CA SCREENING 1971 COLON MONITORING 1971 COLONOSCOPY - COLON CA SCREENING 1971 CT COLONOGRAPHY - COLON CA SCREENING 1971 Colorectal Cancer Screening 1971 FIT - COLON CA SCREENING 1971 FLEX SIG - COLON CA SCREENING 1971 HIV SCREENING 1986 HEPATITIS C SCREENING 11/27/1989 HEPATITIS B VACCINE (1 of 3 - 19+ 3-dose series) 1990 PNEUMOCOCCAL VACCINE 50+ (1 of 2 - PCV) 1990 ZOSTER VACCINE (1 of 2) 2021 SCREENING FOR DIABETES 04/27/2024 COVID-19 VACCINE (1 - 2023-2 5 season) 2024 INFLUENZA VACCINE (#1) 2024 08/28/2018 DEPRESSION SCREENING 11/07/2024 DTAP/TDAP/TD VACCINES (2 - T d or Tdap) 12/23/2024 12/23/2014 HIB VACCINE Aged Out No longer eligi ble based on patient's age to complete this topic HPV VACCINE Aged Out No longer eligi ble based on patient's age to complete this topic MENINGOCOCCAL (Group B) VACCINE Aged Out No longer eligible based on patient's age to complete this topic MENINGOCOCCAL VACCINE Aged Out No becky lesli eligible based on patient's age to complete this topic Care Teams Bend Sorter Relationship Specialty Start Date End Date Ursula Reyes [address] [facility] [address] [place] [address] PCP - General 01/23/24
--- OUTSIDE RECORDS SUMMARY | 2024-12-24 18:06 | XMS_ITS | Referral Summary ---
Author Organization [facility] Address [address] [place] [address] Care Team Providers Care Cement Finishing Supervisor Name Role Phone Amy Ursula Thomas Primary Care Provider [phone] Source Comments [facility],non-owned Affiliates and Associated Physician Practices is amultiple site organization consisting of ambulatory clinics and hospital sitesin [place], [place], [place] and [place]. This disclosure is being madepursuant to the Care Everywhere program and may not contain all information available regarding this patient. Last updated 18.[facility] Allergies No known active allergies Medications * Be aware that medications may not be up to date on this document. Alwaysverify current medications with the patient. Medication Sig Dispensed Refills Start Date End Date Status atorvastatin (Lipitor) 40 MG tablet Take 1 (one) tablet by mouth as directed 11/07/2019 Active fluticasone propionate (Flonase) 50 MCG/ACT nasal spray [place] 1 (one) spray into each nostril as [...] Comments Blood Pressure 151/97 09/10/2024 9:25 AM HIDE PASTER Pulse 87 09/10/2024 9:25 AM HIDE PASTER Temperature - - Respiratory Rate - - Oxygen Saturation 100% 01/23/2024 8:38 AM CDT Inhaled Oxygen Concentration - - Weight 77.7 kg (171 lb 3.2 oz) 09/10/2024 9:25 A M HIDE PASTER Height 165.1 cm (5' 5 ) 09/10/2024 9:25 AM HIDE PASTER Body Mass Index 28.49 09/10/2024 9:25 AM HIDE PASTER Plan of Treatment Upcoming Encounters Date Type Department Care Team (Late st Contact Info) Description 01/09/2025 3:30 PM HIDE PASTER Office Visit [facility] - ENT [address] , [address] [address] Nely Mendoza, AUDIO VISUAL AIDS DIRECTOR-BUSINESS MANAGER [employer] [address] [address] 02/07/2025 9:30 AM CDT Office Visit [facility] - ENT [address] , [address] [address] Nely Mendoza, AUDIO VISUAL AIDS DIRECTOR-BUSINESS MANAGER [employer] [address] [address] 03/27/2025 3:00 PM CDT [facility] [address] [facility] [place] [address] Lilliam Arana, Gregory [address] [facility] [address] [place] [address] 03/27/2025 3:30 PM CDT Office Visit [facility] - ENT [address] [facility], [place] [address] Mati Sanchez MD [address] [place] [address] Care Teams Cement Finishing Supervisor Relationship Specialty Start Date End Date Ursula Reyes [address] [facility] [address] [place] [address] PCP - General 01/23/24
[2024-12-24 19:17] LABS: Basophils Absolute Auto 0.1 K/mm3 (0.0-0.1); Basophils Percent Auto 0.9 % (0.2-1.2); Eosinophils Absolute Auto 0.5 K/mm3 (0-0.3); Eosinophils Percent Auto 4.5 % (0-4.4); Hematocrit 43.2 % (42.0-52.0); Hemoglobin 14.4 g/dL (14.0-18.0); Immature Granulocyte Absolute 0.02 K/mm3 (0.00-0.031); Immature Granulocyte Percent A 0.2 % (0-0.5); Lymphocytes Percent Auto 24.4 % (18.3-44.2); Mean Corpuscular HGB Conc 33.3 g/dl (32-36); Mean Corpuscular Hemoglobin 32.6 pg (26-34); Mean Corpuscular Volume 97.7 fl (80-100); Mean Platelet Volume 10.5 fl (7.4-10.4); Monocytes Absolute Auto 0.6 K/mm3 (0.1-0.6); Monocytes Percent Auto 5.7 % (2.6-8.5); Neutrophils Absolute Auto 6.9 K/mm3 (1.3-6.7); Neutrophils Percent Auto 64.3 % (45.5-73.1); Platelet Count Result 276 k/mm3 (150-375); Red Blood Count 4.42 M/mm3 (4.6-6.20); Red Cell Distribution Width 12.6 % (11.5-14.5); White Blood Count 10.7 K/mm3 (4.5-10.0)
[2024-12-24 19:18] LABS: Alanine Aminotransferase 32 U/L (6-50); Albumin Level 4.7 g/dL (3.5-5.1); Alkaline Phosphatase 90 U/L (38-126); Anion Gap 9 mmol/L (4-12); Aspartate Amino Transferase 28 U/L (17-59); Bilirubin,Total 0.8 mg/dL (0.2-1.3); Blood Urea Nitrogen 11 mg/dL (9-20); Calcium 9.7 mg/dL (8.4-10.2); Carbon Dioxide 29 mmol/L (22-30); Chloride 102 mmol/L (98-107); Estimated Glomerular Filt Rate > 60; Glucose 86 mg/dL (65-110); Potassium 4.4 mmol/L (3.4-5.0); Sodium 140 mmol/L (137-145)
[2024-12-24 19:40] LABS: Prostate Specific Antigen 3.3 ng/mL (< OR = 4.0)
[2024-12-24 21:50] LABS: Vitamin D 25 Hydroxy 46.4 ng/mL
[2024-12-25 11:37] LABS: Cholesterol 177 mg/dL (0-200); HDL Direct 50 mg/dL; Triglycerides 185 mg/dL (<150)
[2024-12-25 11:48] LABS: LDL Cholesterol Direct 88 mg/dL
== END 2024-12-24 15:32 | disposition home or self-care (01) ==
LOC: ANHGOSHLAB 15:32
PROVIDERS: PCP Family Medicine; Visit Provider Nurse Practitioner Family
DX: Z00.00 Encounter for general adult medical examination without abnormal findings (principal); E55.9 Vitamin D deficiency, unspecified; R42 Dizziness and giddiness; Z13.220 Encounter for screening for lipoid disorders; Z12.5 Encounter for screening for malignant neoplasm of prostate; Z13.29 Encounter for screening for other suspected endocrine disorder
CPT/HCPCS: 36415; 80053; 80061; 82306; 84153; 84443; 85025; G0103